=== PATIENT | female | born 1970 | race Caucasian/White ===

== ENCOUNTER 2016-08-23 20:59 | Emergency (ER) | payer OTHER ==
[~2016-08-23] VITALS: Ht 170.2 cm; Wt 84.1 kg
[2016-08-23 21:04] VITALS: BP 138/98; PULSE 80; RESP 20; O2SAT 97
[2016-08-23] MEDS ORDERED: ARIP15TA7 PO (21:32)
[2016-08-23] MEDS ORDERED: LAMO100T2 PO (21:32)
--- NOTE | 2016-08-23 21:43 | ED.REPORT ---
HPI-Psychiatric Illness Date of Service Aug 23, 2016 ED Provider: Tristen Reddy Pt is a 46 year old female with a history of bipolar disorder and depression who presents to the ED complaining of insomnia onset 6 days ago. She c/o associated rapid thoughts, crying, disruptive behaviors, excessive gambling, mark, depression, and suicidal ideations without a plan. She denies current suicidal ideations. The pt reports that she is taking medication, but she thinks she missed doses. Pt recently moved to the area 2 months ago for a new job, and she thinks that it has triggered a bipolar episode since she moved here. Pt states that she has not worked a full-time job in 11 years and that she lives alone, although her father has come to support her. She also reports that she recently came home from a week-long [place] trip for her job. Nursing Notes Stated Complaint: BIPOLAR EPISODE, MEDICATION Chief Complaint: Psychiatric Complaint Nursing Notes Reviewed: Yes Allergies: Coded Allergies: No Known Allergies (Unverified , 08/23/16) Scheduled Aripiprazole (Abilify) 20 Mg Tablet 20 MG PO DAILY Lamotrigine (Lamotrigine) 150 Mg Tablet 150 MG PO DAILY Scheduled PRN Clonazepam (Klonopin) 0.5 Mg Tablet 0.5 MG PO ASDIRECTED PRN PRN For Anxiety 0.5mg in the AM and 1mg in the evening General Time Seen by MD: 21:39 Chief Complaint Other (Bipolar episode) Hx Obtained From: Patient Arrived By: Walk-in Onset Occurred: More than a week ago... (2 months) Symptom Duration: Waxes and wanes Severity: Current: No pain currently Severity: Maximum: No pain Recent Healthcare: No recent doctor visit, No recent hospitalization Similar Sx Previous: Yes Risk-Psychiatric Illness Suicide Risk Stratification RF Statements: Risk factors reviewed Past Medical History Past Medical History Bipolar disorder Depression Past Surgical History Denies Smoking History Unknown if Ever Smoker Social History Recently moved to the area 2 months ago. Lives alone and her job is new. 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 Physical Exam Initial Vital Signs Vital Signs (First) Date Time Temp Pulse Resp B/P Pulse Ox O2 Delivery O2 Flow Rate FiO2 08/23/16 21:04 36.6 80 20 138/98 97 Room Air Initial VS: Reviewed, Vital signs abnormal Head / Eyes: Atraumatic, Normocephalic Neck: Supple, Full range of motion Respiratory: Breath sounds normal, Clear to auscultation, No respiratory distress Cardiovascular: Regular rate & rhythm, Heart sounds normal, Intact distal pulses Abdomen / GI: Soft, Non-tender Extremities: Vascular intact, Neuro intact Skin: Warm, Dry, No cyanosis General/Constitutional: Awake, Alert, No acute distress Neurologic: Oriented X3, Speech NL, No motor deficits, No sensory deficits Psychiatric: Not homicidal Character of speech and speech content were normal. She has a flattened affect and seems sad with periods of animation and smiling. She has suicidal ideations, but no intent or plan. Interpretation & Diagnostics Lab Results Interpretation Test 08/23/16 21:37 Hold Urine Received (Received) Re-Eval/Medical Decision Med Decision/Clinical Course 46-year-old female with a history of bipolar illness who recently moved to this area. She has not yet established with a physician. She has started to have some hypomania symptoms with intermittent periods of depression because of her behavior. She is here with her father who came over from [place] to help her. He will be staying with her until some resolution occurs. She feels that she is able to continue to care for herself but is apprehensive that if something is not done she will worsen. She has not been getting any sleep and would like several days of sleep medication. Her case was discussed with the [facility]. They recommended with her private insurance that she simply call the number on the back of card and attempt to make arrangements [facility]LS[facility] for follow-up care. No changes in her current medications other than to encourage her to take them regularly. She will call me or return to the emergency room if there is significant worsening prior to being able to see a provider. Source of Hx: Old records Re-Evaluation/Progress : Time of Eval: 23:20 )( Re-Eval Psychiatric: No danger to self Re-Evaluation/Progress Note: Pt rechecked. She reports that she is comfortable going home since her dad will be there to help her. Informed pt of social media manager recommendations and plan for discharge. Pt understands and agrees with plan for discharge. F/U instructions and RTER warnings given. All questions addressed. Consultation : Call Returned at: 23:00 Court Interpreter: Agrees with eval, Agrees with plan Note: Consult with social media manager. Recommends that the pt calls her insurance at [place] to set up an appointment tomorrow or return to speak with a social media manager on Thursday if she is unable to make progress with calling. Counseled Regarding: Diagnosis, Lab results, Need for follow-up, When/why to return to ED Discharge & Departure Impression: Primary Impression: Bipolar illness Active/Remission status: currently active Current bipolar episode type: mixed Current episode severity: moderate Qualified Code: F31.62 - Bipolar disorder, current episode mixed, moderate Additional Impression: Insomnia Insomnia type: due to other mental disorder Qualified Code: F51.05 - Insomnia due to other mental disorder )( Condition at Discharge: No danger to self, No danger to others, No homicidal ideation Disposition: Home Discharge Condition All VS Reviewed: Yes Condition: Stable Patient Instructions: Bipolar Disorder (ED) Additional Instructions: Take your medication as prescribed. In addition, lorazepam (Ativan) 1 mg by mouth daily at bedtime as needed for sleep, #3 dispensed. If one dose is not effective after 60-90 minutes, you may repeat the dose. Contact the number on the back of your insurance card to schedule follow-up. If you are unable to make any progress with that, return here on Thursday or Thursday for assistance from our social media manager. Call me at [phone] between the hours of 9 PM and 6 AM for the next few nights if you have any concerns. Call the Crisis Line at if needed. Referrals: [facility] Scribsiddharth Attestation Portions of this note were transcribed by Annabelle Joseph. I, Dr. Reddy personally performed the history, physical exam and medical decision-making; I reviewed and confirmed the accuracy of the information in the transcribed note. Signed by: Tameka Gamez, 08/23/16 and 22:50. copies to: [facility] Tristen Reddy MD Aug 23, 2016 21:43 Annabelle Sigala Aug 23, 2016 21:46
[2016-08-23] MEDS ORDERED: _LORazepam 1 mg Tablet PO PRN (22:30)
[2016-08-24] MEDS ORDERED: CLON0.5T PO (15:34)
[2016-08-24] MEDS ORDERED: ARIP20TA8 PO (15:34)
[2016-08-24] MEDS ORDERED: LAMO150T2 PO (15:34)
== END 2016-08-23 23:51 | disposition home or self-care (01) ==
LOC: SED 20:59
DX: F31.62 Bipolar disorder, current episode mixed, moderate (principal); F51.05 Insomnia due to other mental disorder; Z79.899 Other long term (current) drug therapy

== ENCOUNTER 2016-08-24 12:32 | Emergency (ER) | payer OTHER ==
[~2016-08-24] VITALS: Ht 170.2 cm; Wt 84.1 kg
[~2016-08-24 12:32] MED LIST: ARIP15TA7 PO; LAMO100T2 PO
[2016-08-24 12:36] VITALS: BP 114/73; PULSE 79; RESP 15; O2SAT 97
--- NOTE | 2016-08-24 13:23 | ED.REPORT ---
HPI-Psychiatric Illness Date of Service Aug 24, 2016 ED Provider: Hammad Reese DO Pt is a 46 year old female with a hx of Bipolar presenting to the ED complaining of "sinking into a depression." She was seen here last night while she was manic, and states that now today she feels that she is moving into a depression. She does report current suicidal ideation but denies any plan or previous attempt. She feels like her medication is not enough. She has been hospitalized previously for her Bipolar. Her main request today is to have a medication adjustment that she can go to work tomorrow and be able to avoid worsening depression. Nursing Notes Stated Complaint: POSSIBLE BIPOLAR EPISODE Chief Complaint: Psychiatric Complaint Nursing Notes Reviewed: Yes Allergies: Coded Allergies: No Known Allergies (Unverified , 08/23/16) Scheduled Aripiprazole (Abilify) 20 Mg Tablet 20 MG PO DAILY Lamotrigine (Lamotrigine) 150 Mg Tablet 150 MG PO DAILY Scheduled PRN Clonazepam (Klonopin) 0.5 Mg Tablet 0.5 MG PO ASDIRECTED PRN PRN For Anxiety 0.5mg in the AM and 1mg in the evening General Time Seen by MD: 13:21 Chief Complaint Depressed Hx Obtained From: Patient Arrived By: Walk-in Onset Occurred: Just prior to arrival Symptom Duration: Since onset Progression Since Onset: Constant Severity: Current: No pain currently Severity: Maximum: No pain Recent Healthcare: No recent hospitalization, Recent doctor visit Similar Sx Previous: Yes Risk-Psychiatric Illness Suicide Risk Stratification Suicide Risk Factors - Adult: : Prior psych admission RF Statements: Risk factors reviewed Past Medical History Past Medical History Bipolar disorder Depression Past Surgical History Foot surgery Reports: Cholecystectomy Smoking History Never Smoker Social History Recently moved to the area 2 months ago. Lives alone and her job is new. 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 Physical Exam Initial Vital Signs Vital Signs (First) Date Time Temp Pulse Resp B/P Pulse Ox O2 Delivery O2 Flow Rate FiO2 08/24/16 12:36 36.4 79 15 114/73 97 Room Air Initial VS: Reviewed Head / Eyes: Atraumatic, Normocephalic, PERRL ENT: Mucous membranes moist, Conjunctiva normal, No scleral icterus Neck: Supple, Non-tender, Full range of motion Respiratory: Breath sounds normal, Clear to auscultation, No respiratory distress Cardiovascular: Regular rate & rhythm, Heart sounds normal, Intact distal pulses Abdomen / GI: Soft, Non-tender, No guarding, No rebound, No distention Extremities: Vascular intact, Neuro intact, No swelling, No tenderness Skin: Warm, Dry, No cyanosis General/Constitutional: Awake, Alert, No acute distress, Well appearing Neurologic: Oriented X3, Speech NL, No motor deficits, No sensory deficits, CN II - XII intact, Reflexes equal bilat Psychiatric: Cognitive function NL, Judgment/insight NL, Thought content NL Abnormal Mood/Affect: Positive: Flat affect Abnormal Thinking / Perception: Positive: Suicidal, no plan (Mild) Interpretation & Diagnostics Lab Results Interpretation Test 08/24/16 13:50 Hold Urine Received (Received) Re-Eval/Medical Decision Med Decision/Clinical Course Patient is seen and evaluated, she does not seem to be at imminent risk of harm to herself or others, she is not really disabled. Psychiatry precision machine operator is contacted and agrees with the medication consult, will plan to increase Abilify increase Lamictal, and add low-dose Klonopin. Return and follow-up precautions given. Re-Evaluation/Progress : Time of Eval: 15:29 Patient Status: Condition improved Re-Evaluation/Progress Note: Discussed plan for discharge. Pt understands and agrees with plan. Consultation : Referral / Consult Name: Todd Fan MD Consulted With: Psychiatry Call Returned at: 15:07 Furniture Restorer: Agrees with plan Note: Increase her Lamictal dosage to 150 mg daily, take Abilify in the morning and increase to 20 mg, and take Klonopin 0.5-1 mg BID. Counseled Regarding: Diagnosis, Lab results, Need for follow-up, When/why to return to ED Discharge & Departure Impression: Primary Impression: Bipolar illness Active/Remission status: currently active Current bipolar episode type: depressed Current episode severity: moderate Qualified Code: F31.32 - Bipolar disorder, current episode depressed, moderate )( Condition at Discharge: No danger to self, No danger to others Disposition: Home Discharge Condition All VS Reviewed: Yes Condition: Improved Additional Instructions: Increase Abilify to 20 mg in the morning Increase Lamictal to 150 mg daily Take Klonopin 0.5 mg in the morning and 1 mg in the evening Call your insurance company for help in coordinating a primary care doctor and psychiatrist. Call 911, call the crisis line, or return to the ER if you develop worsening depression, persistent thoughts of suicide, or any other mental health concerns. Referrals: [facility] Scribe Attestation Portions of this note were transcribed by Kimberley Way. I, Dr. Reese personally performed the history, physical exam and medical decision-making; I reviewed and confirmed the accuracy of the information in the transcribed note. Signed by: Tameka Santillan, 08/24/2016 at 1520. copies to: [facility] Hammad Reese DO Aug 24, 2016 13:[address] Aug 24, 2016 13:41
[2016-08-24] MEDS ORDERED: LAMO150T2 PO (15:34)
[2016-08-24] MEDS ORDERED: CLON0.5T PO (15:34)
[2016-08-24] MEDS ORDERED: ARIP20TA8 PO (15:34)
== END 2016-08-24 16:24 | disposition home or self-care (01) ==
LOC: SED 12:32
DX: F31.32 Bipolar disorder, current episode depressed, moderate (principal)